=== PATIENT | male | born 1990 | race Two or more races ===

== ENCOUNTER 2017-10-05 15:18 | Emergency (ER) | payer SELFPAY ==
[~2017-10-05] VITALS: Ht 180.3 cm; Wt 80.0 kg
[2017-10-05] MEDS ORDERED: SODIUM CHLORIDE 0.9% 1,000 ML IV ONE (16:22)
[2017-10-05] MEDS ORDERED: LORAZEPAM 2MG/ML CPJ ONE (16:28)
[2017-10-05] MEDS ORDERED: OLANZAPINE 10 MG/VIAL IM ONE (16:30)
[2017-10-05] MEDS ORDERED: LORAZEPAM 2MG/ML CPJ IM ONE (16:30)
[2017-10-05 17:02] LABS: BASOPHILS % 0.8 % (0.0-2.0); EOSINOPHILS % 0.1 % (0.0-5.0); HEMATOCRIT. 40.7 % (42.0-52.0); HEMOGLOBIN. 13.8 g/dL (14.0-18.0); LYMPHOCYTES % 13.8 % (20.0-50.0); MEAN CORPUSCULAR VOLUME 88.8 fL (80.0-94.0); MEAN PLATELET VOLUME 8.4 fl (7.4-10.4); MONOCYTES % 5.5 % (2.0-8.0); NEUTROPHILS % 79.8 % (40.0-76.0); PLATELET 176 x1000/uL (130-400); RED BLOOD CELL COUNT 4.59 mill/uL (4.7-6.1)
[2017-10-05 17:05] LABS: CHLORIDE 106 mEq/L (98-107)
[2017-10-05 17:09] LABS: ETHANOL BLOOD 267 mg/dL
[2017-10-05 17:13] LABS: CREATINE KINASE 286 IU/L (39-308)
[2017-10-05 17:29] LABS: CLARITY URINE CLEAR (CLEAR); COLOR URINE YELLOW (YELLOW); KETONES URINE NEGATIVE (NEGATIVE); LEUKOCYTE ESTERASE URINE NEGATIVE (NEGATIVE); NITRITE URINE NEGATIVE (NEGATIVE); OCCULT BLOOD URINE NEGATIVE (NEGATIVE); PH URINE 7.5 (4.5-8.0); PROTEIN URINE NEGATIVE (NEGATIVE); SPECIFIC GRAVITY URINE 1.008 (1.005-1.030); UROBILINOGEN URINE 0.2 E.U./dL (0.2-1.0)
[2017-10-05 17:39] LABS: *AMPHETAMINES SCREEN URINE NEGATIVE (NEGATIVE); *BARBITURATES SCREEN URINE NEGATIVE (NEGATIVE); *BENZODIAZEPINES SCREEN URINE NEGATIVE (NEGATIVE); *COCAINE SCREEN URINE NEGATIVE (NEGATIVE)
[2017-10-05 17:40] LABS: CANNABINOID URINE SCREEN PRESUMTIVE POSITIVE (NEGATIVE); METHADONE URINE SCREEN NEGATIVE (NEGATIVE); OPIATES URINE SCREEN NEGATIVE (NEGATIVE); PHENCYCLIDINE URINE SCREEN NEGATIVE (NEGATIVE)
[2017-10-06 09:30] VITALS: BP 105/62
== END 2017-10-06 09:36 | disposition home or self-care (01) ==
LOC: ER 15:27
DX: T51.0X1A Toxic effect of ethanol, accidental (unintentional), initial encounter (principal); G92 Toxic encephalopathy; F41.9 Anxiety disorder, unspecified; F91.8 Other conduct disorders; Y90.8 Blood alcohol level of 240 mg/100 ml or more; Z78.1 Physical restraint status; Y92.018 Other place in single-family (private) house as the place of occurrence of the external cause
CPT/HCPCS: 36415; 70450; 80053; 80305; 80307; 80329; 81003; 82550; 84443; 84484; 85025; 93005; 96360; 96361; 96372; 99285; G0482; J2060; J3490; J7030